=== PATIENT | female | born 1995 | race Caucasian/White ===

== ENCOUNTER 2016-09-01 07:54 | Emergency (ER) | payer OTHER ==
[~2016-09-01] VITALS: Ht 167.6 cm; Wt 74.7 kg
[2016-09-01] MEDS ORDERED: NAPROSYN500 MG PO (10:08)
[2016-09-01 10:18] VITALS: BP 149/73
== END 2016-09-01 10:20 | disposition home or self-care (01) ==
LOC: EME 07:54
DX: S80.01XA Contusion of right knee, initial encounter (principal); R68.84 Jaw pain; V49.40XA Driver injured in collision with unspecified motor vehicles in traffic accident, initial encounter
CPT/HCPCS: 73564; 99281; 99283